=== PATIENT | female | born 1950 | race Caucasian/White ===

== ENCOUNTER → 2016-10-06 | Outpatient (CLI) | payer MEDICARE ==
[~2016-10-06] MED LIST: ALPRAZOLAM PO; ASPIRIN PO; CALCIUM 500 + D1 TAB PO; ESTRATEST TABLE1 TAB PO; FLAX SEED OIL1000 MG PO; FOSAMAX PO; HYTRIN PO; NAPROXEN PO; SERZONE PO; VITAMIN D 4001 UDTAB PO
--- NOTE | ~2016-10-06 | MR17 ---
[facility] A Service of [facility] & [facility] RADIOLOGY TEXT RESULTS PATIENT: NIXON PARISH LOCATION: [facility] : 48 UNIT #: [id number] AGE: [address]: Charly Pineda II, MD SEX: F ORDER DR: [id number] [address] [address] [id number] O MR#: [id number] Acc #: [id number] NAME: NIXON PARISH : 1950 SEX: F STUDY DATE/TIME: 10/06/2016 13:45 UNIT: [facility] ROOM: STUDY DESCRIPTION: MR Brain WWo Contrast Attending Physician: Charly Pineda II., M.D. Referring Physician: Charly Pineda II., M.D. Ordering Physician: Charly Pineda II., M.D. Primary Care Physician: Gregory Estrada M.D. MRI CENTER REPORT This report is preliminary unless electronic signature is present. EXAM MRI of the brain with and without contrast dated 10/06/2016. COMPARISON MRA head and neck dated 10/06/2016. HISTORY Left eye visual loss, especially in the periphery for 4 days. FINDINGS Multisequence, multiplanar imaging of the brain was obtained with and without contrast. GFR measured greater than 60. 12 mL of MultiHance was administered intravenously. There is a large restricted diffusion lesion in the posteromedial right occipital lobe extending towards the inferior right parietal lobe. The lesion includes the right calcarine cortex. There is associated increased T2 signal change without hemorrhage. There is mild edema associated with the lesion, but no midline shift, hydrocephalus. Punctate, few small hyperintense T2 nonenhancing lesions are noted in the white matter, particularly in bifrontal lobes. Vascular flow voids of the major cerebral arteries and dural venous sinuses are not obstructed in these thicker slices. Imaged orbits with the ocular structures are unremarkable. Paranasal sinuses and mastoids do not demonstrate any significant abnormality. S-shaped nasal septal deviation is seen. Thick slices through the sella with the pituitary gland, pineal region and upper cervical spine are unremarkable. Postcontrast sequences do not demonstrate abnormal enhancement. IMPRESSION 1. Late acute right TALENT ADVISOR distribution stroke is seen without hemorrhage. 2. No associated midline shift, hydrocephalus or hemorrhage. 3. The MR angiogram head from the same day did not demonstrate any asymmetrical decreased flow in the right TALENT ADVISOR when compared to the [facility] A Service of [facility] & [facility] RADIOLOGY TEXT RESULTS PATIENT: NIXON PARISH LOCATION: [facility] : 48 UNIT #: [id number] AGE: [address]: Charly Pineda II, MD SEX: F ORDER DR: left. No occlusion of vessel could be identified. 4. Attempts are made to contact Dr. Charly Pineda at 4:10 p.m. on 10/06/2016. Findings were discussed with him within the next 30 minutes. Dictated by... Alexia Gambino M.D. THIS IS AN ELECTRONICALLY VERIFIED REPORT Alexia Gambino M.D. at 10/07/2016 3:41 PM CPR/psc TD: 10/06/2016 21:10 JOB #: [id number] MRI CENTER REPORT
--- NOTE | ~2016-10-06 | MR134 ---
[facility] A Service of [facility] RADIOLOGY TEXT RESULTS PATIENT: NIXON PARISH LOCATION: [facility] : 48 UNIT #: [id number] AGE: [address]: Charly Pineda II, MD SEX: F ORDER DR: [id number] [place] [id number] O MR#: [id number] Acc #: [id number] NAME: NIXON PARISH : 1950 SEX: F STUDY DATE/TIME: 10/06/2016 13:20 UNIT: [facility] ROOM: STUDY DESCRIPTION: MR MRA Neck Wo Contrast Attending Physician: Charly Pineda II., M.D. Referring Physician: Charly Pineda II., M.D. Ordering Physician: Charly Pineda II., M.D. Primary Care Physician: Gregory Estrada M.D. MRI CENTER REPORT This report is preliminary unless electronic signature is present. EXAM MR angiogram of the neck without contrast dated 10/06/2016 COMPARISON MRI brain and MRA head dated 10/06/2016. HISTORY Left eye visual loss especially in the periphery for the last four days. FINDINGS Source and 3-D reconstruction MIP images of the neck arteries were obtained without contrast. Bilateral common, internal and external carotid arteries demonstrate expected course, caliber and flow. There is some heterogeneity of signal in bilateral common carotid artery bifurcation extending into the origins of bilateral ICA and CCA, likely relating to flow artifact. No distal significant flow limitation is seen. Bilateral vertebral arteries are codominant. They demonstrate expected course, caliber and flow too. IMPRESSION 1. No hemodynamically flow-limiting significant stenosis in bilateral internal carotid artery bulbs per NASCET criteria. 2. No aneurysm or AVM. Dictated by... Alexia Gambino M.D. THIS IS AN ELECTRONICALLY VERIFIED REPORT [facility] A Service of [facility] RADIOLOGY TEXT RESULTS PATIENT: NIXON PARISH LOCATION: [facility] : 48 UNIT #: [id number] AGE: [address]: Charly Pineda II, MD SEX: F ORDER DR: Alexia Gambino M.D. at 10/07/2016 3:42 PM CPR/rnr TD: 10/06/2016 19:22 JOB #: [id number] MRI CENTER REPORT
--- NOTE | ~2016-10-06 | MR122 ---
[facility] A Service of [facility] RADIOLOGY TEXT RESULTS PATIENT: NIXON PARISH LOCATION: [facility] : 48 UNIT #: [id number] AGE: [address]: Charly Pineda II, MD SEX: F ORDER DR: [id number] [place] [id number] O MR#: [id number] Acc #: [id number] NAME: NIXON PARISH : 1950 SEX: F STUDY DATE/TIME: 10/06/2016 13:11 UNIT: [facility] ROOM: STUDY DESCRIPTION: MR MRA Head Wo Contrast Attending Physician: Charly Pineda II., M.D. Referring Physician: Charly Pineda II., M.D. Ordering Physician: Charly Pineda II., M.D. Primary Care Physician: Gregory Estrada M.D. MRI CENTER REPORT This report is preliminary unless electronic signature is present. EXAM MR angiogram of the head, without contrast, 10/06/2016. COMPARISON STUDIES MRI brain, 10/06/2016; MRA neck, 10/06/2016. HISTORY Left eye visual loss, especially in the periphery for 4 days. FINDINGS Source and 3-D reconstruction MIP images of the [place] were obtained without contrast. Mild irregularity is noted in the left ICA at the cervical petrous junction in the skull base. It could be artifactual or related to mild stenosis. No distal flow limitation. Bilateral anterior and middle cerebral arteries are within normal limits and are symmetrical. Tiny A-COM cannot be excluded. Well-defined P-COMs are not seen. Basilar artery, bilateral posterior cerebral arteries and bilateral vertebral arteries are within normal limits. No aneurysm or AVM. IMPRESSION 1. Mild irregularity is noted at the junction of the left petrous and cervical ICA at the skull base. It could be artifactual or related to mild stenosis. 2. No aneurysm or AVM. Dictated by... Alexia Gambino M.D. THIS IS AN ELECTRONICALLY VERIFIED REPORT [facility] A Service of [facility] & [facility] RADIOLOGY TEXT RESULTS PATIENT: NIXON PARISH LOCATION: [facility] : 48 UNIT #: [id number] AGE: [address]: Charly Pineda II, MD SEX: F ORDER DR: Alexia Gambino M.D. at 10/07/2016 3:40 PM CPR/ni TD: 10/06/2016 19:10 JOB #: [id number] MRI CENTER REPORT
[2016-10-06 15:55] LABS: POC - CREATININE 0.81 mg/dL (0.44-1.03); POC - GFR >60.0 mL/min (>60)
== END | disposition home or self-care (01) ==
LOC: SMRI 12:09
PROVIDERS: Psychiatry & Neurology Neurology
DX: I63.9 Cerebral infarction, unspecified (principal); H54.7 Unspecified visual loss
CPT/HCPCS: 70544; 70547; 70553; 82565; A9581

== ENCOUNTER → 2016-10-14 | Outpatient (CLI) | payer MEDICARE | END | disposition home or self-care (01) | LOC: CECH 10:13 | DX: I63.8 Other cerebral infarction (principal); H54.7 Unspecified visual loss | CPT/HCPCS: 93306 ==